=== PATIENT | female | born 1990 | race Caucasian/White ===

== ENCOUNTER 2016-07-06 07:31 | Inpatient (IN) | payer OTHER ==
[2016-07-06] MEDS ORDERED: Dinoprostone* 10 MG VAG.SUPP VAGINAL ONE (08:23)
[2016-07-06] MEDS: Prenatal Vitamin TAB PO SCH (09:44)
[2016-07-06] MEDS ORDERED: Acetaminophen TAB* 325 MG PO PRN (15:48)
[2016-07-06] MEDS ORDERED: Nalbuphine* 20 MG/ML 1 ML VIAL IV PRN (21:10)
[2016-07-06] MEDS ORDERED: Promethazine INJ(RESTRICTED)* 25 MG/ML 1 ML VIAL IV PRN (21:11)
[2016-07-06 22:14] LABS: Hematocrit 33 % (35-47); Hemoglobin 9.7 g/dl (12.0-16.0); Mean Corpuscular HGB Conc 30 g/dl (31-36); Mean Corpuscular Hemoglobin 20 pg (27-31); Mean Platelet Volume 9 um3 (7.4-10.4); Red Cell Distribution Width 17 % (10.5-15); White Blood Count 19.8 10^3/ul (3.5-10.8)
[2016-07-06 22:15] LABS: Comments Flag Yes
[2016-07-06 22:16] LABS: Mean Corpuscular Volume 67 fL (80-97)
[2016-07-07] MEDS ORDERED: Oxytocin in LR* 20 UNITS/1,000 ML BAG IVPB SCH ×2 (01:00→07:00)
[2016-07-07] MEDS ORDERED: Nalbuphine* 20 MG/ML 1 ML VIAL IV ONE (05:08)
[2016-07-07] MEDS ORDERED: Promethazine INJ(RESTRICTED)* 25 MG/ML 1 ML VIAL IV PRN (05:11)
[2016-07-07] MEDS ORDERED: Promethazine INJ(RESTRICTED)* 25 MG/ML 1 ML VIAL ONE (05:12)
[2016-07-07] MEDS ORDERED: Nalbuphine* 20 MG/ML 1 ML VIAL ONE (05:12)
[2016-07-07] MEDS ORDERED: Glycerin ADULT SUPP PR PRN (06:28)
[2016-07-07] MEDS ORDERED: Witch Hazel PAD* JAR TOPICAL PRN (06:28)
[2016-07-07] MEDS ORDERED: Acetaminophen TAB* 325 MG PO PRN (06:28)
[2016-07-07] MEDS ORDERED: Dibucaine 1% 28.35 GM TUBE PR PRN (06:28)
[2016-07-07] MEDS ORDERED: Simethicone TAB* 80 MG TAB.CHEW PO SCH (08:30)
[2016-07-07] MEDS: Docusate CAP* 100 MG PO SCH ×3 (09:50→19:56)
[2016-07-07] MEDS: Ibuprofen TAB* 600 MG PO PRN ×2 (09:50→19:56)
[2016-07-07] MEDS: Prenatal Vitamin TAB PO SCH (09:52)
[2016-07-08] MEDS: Ibuprofen TAB* 600 MG PO PRN (02:49)
[2016-07-08 06:31] LABS: Hematocrit 29 % (35-47); Hemoglobin 8.1 g/dl (12.0-16.0); Mean Corpuscular HGB Conc 29 g/dl (31-36); Mean Corpuscular Hemoglobin 20 pg (27-31); Mean Platelet Volume 9 um3 (7.4-10.4); Red Blood Count 4.07 10^6/ul (4.0-5.4); Red Cell Distribution Width 18 % (10.5-15); White Blood Count 14.1 10^3/ul (3.5-10.8)
[2016-07-08 06:33] LABS: Comments Flag Yes
[2016-07-08 06:34] LABS: Mean Corpuscular Volume 70 fL (80-97)
[2016-07-08] MEDS: Prenatal Vitamin TAB PO SCH (08:08)
[2016-07-08] MEDS: Docusate CAP* 100 MG PO SCH (08:08)
[2016-07-08 08:16] VITALS: BP 125/57
[2016-07-08] MEDS ORDERED: Ferrous Gluconate TAB* 324 MG TAB PO SCH (09:00)
== END 2016-07-08 10:32 | disposition home or self-care (01) | DRG 560 ==
LOC: MCHOBOUT 07:31 → MCHOB 08:11
PROVIDERS: ADMIT Obstetrics & Gynecology; ATTEND Obstetrics & Gynecology
PROC: 10907ZC Drainage of Amniotic Fluid, Therapeutic from Products of Conception, Via Natural or Artificial Opening (ICD-10-PCS; principal; 2016-07-07)
PROC: 10E0XZZ Delivery of Products of Conception, External Approach (ICD-10-PCS; 2016-07-07)
PROC: 4A1H7CZ Monitoring of Products of Conception, Cardiac Rate, Via Natural or Artificial Opening (ICD-10-PCS; 2016-07-07)
PROC: 3E033VJ Introduction of Other Hormone into Peripheral Vein, Percutaneous Approach (ICD-10-PCS; 2016-07-07)
DX: O99.214 Obesity complicating childbirth (principal); Z68.41 Body mass index [BMI] 40.0-44.9, adult; E66.01 Morbid (severe) obesity due to excess calories; O70.1 Second degree perineal laceration during delivery; O90.81 Anemia of the puerperium; D64.9 Anemia, unspecified; Z88.2 Allergy status to sulfonamides; Z3A.39 39 weeks gestation of pregnancy; Z37.0 Single live birth
CPT/HCPCS: 36415; 85025; 86850; 86900; 86901; A9270-GY; J2300; J2550

== ENCOUNTER 2016-07-13 13:03 | Emergency (ER) | payer OTHER ==
[2016-07-13] MEDS: NS 0.9% 1000 ML* 2,000 ML IV ONE ×2 (14:45→15:33)
[2016-07-13 14:53] LABS: Hematocrit 32 % (35-47); Hemoglobin 9.4 g/dl (12.0-16.0); Mean Corpuscular HGB Conc 30 g/dl (31-36); Mean Corpuscular Hemoglobin 20 pg (27-31); Mean Platelet Volume 8 um3 (7.4-10.4); Red Blood Count 4.72 10^6/ul (4.0-5.4); Red Cell Distribution Width 17 % (10.5-15); White Blood Count 16.3 10^3/ul (3.5-10.8)
[2016-07-13 15:05] LABS: Albumin 3.2 g/dL (3.2-5.2); BUN/Creatinine Ratio 21.1 (8-20); C Reactive Protein 50.14 mg/L (< 5.00); EGFR African American 167.6 (>60); EGFR Non-African American 130.3 (>60); Globulin 3.7 g/dL (2-4); Potassium 3.8 mmol/L (3.5-5.0); Total Bilirubin 0.3 mg/dL (0.2-1.0); Total Protein 6.9 g/dL (6.4-8.9)
[2016-07-13 15:11] LABS: Comments Flag Yes; Mean Corpuscular Volume 67 fL (80-97)
--- NOTE | 2016-07-13 17:03 | RAD ---
Indication: 6 days with pelvic pain. Real-time sonography of the pelvis was performed utilizing transabdominal technique. The uterus measures 17.6 x 7.8 x 11.8 cm. Endometrial echo measures 12.2 mm. There is some heterogeneity of the endometrium in the right side of the endometrial cavity which may represent some hemorrhage. A small amount of blood flow is noted within the endometrium. A small amount of retained products is not excluded. Right ovary measures 3.6 x 1.7 x 1.8 cm. Left ovary measures 3.1 x 1.9 x 2.0 cm. IMPRESSION: Irregular heterogeneous endometrium on the right side of the uterus with a trace amount of fluid. I cannot totally exclude a small amount of retained products of conception.
[2016-07-13] MEDS ORDERED: NS 0.9% 1000 ML* 1,000 ML IV ONE (17:37)
[2016-07-13 17:57] LABS: Urine Bacteria Absent (Absent); Urine Bilirubin Negative (Negative); Urine Glucose Negative (Negative); Urine Nitrite Negative (Negative)
[2016-07-13] MEDS ORDERED: metroNIDAZOLE TAB* 250 MG PO ONE ×2 (18:45→18:54)
[2016-07-13] MEDS ORDERED: Amoxicillin/Clavulanate TAB* 875 MG PO ONE ×2 (18:46→18:54)
[2016-07-13] MEDS ORDERED: HYDROcodone/ACETAMIN 5-325 MG* 1 TAB PO ONE ×2 (18:57→18:58)
[2016-07-13] MEDS ORDERED: Ketorolac INJ* 30 MG/ML 1 ML VIAL IV ONE (18:57)
--- NOTE | 2016-07-13 19:19 | ED ---
Alexia Hollis Anna, scribed for Brad Grant MD on 07/13/16 at 1602 . Abdominal Pain/Female - HPI Summary HPI Summary: Patient is a 26 y/o female coming to [facility] presenting with sudden onset of constant, suprapubic abd pain that began at 12:30. The pain began as a cramp and worsened. She describes the severity of the pain as 9/10 at the worst and is currently at 3/10. The pain is alleviated somewhat by lying flat and is exacerbated by movement. The patient is six days . It was a vaginal delivery at 39 weeks, her 2nd baby. There were no complications with delivery she was induced with Cervidil and her labor was21 hours. Her first baby was also delivered vaginally. She is still bleeding lightly, but it has not been worsening and does not have a foul odor. Denies fever, chills, dysuria, change in appetite, or history of abd surgery. Patient is currently bottle feeding. - History of Current Complaint Chief Complaint: EDAbdPain Stated Complaint: LOWER ABD PAIN Time Seen by Provider: 07/13/16 14:06 Hx Obtained From: Patient, Family/Resin Painter - Accompanied by Onset/Duration: Sudden Onset, Lasting Hours, Still Present Timing: Constant Pain Intensity: 3 Pain Scale Used: 0-10 Numeric Location: Suprapubic Allergies/Adverse Reactions: Allergies Allergy/AdvReac Type Severity Reaction Status Date / Time Sulfa Drugs Allergy Intermediate Rash Verified 07/13/16 13:12 PMH/Surg Hx/FS Hx/Imm Hx Previously Healthy: Yes Infectious Disease History: No Infectious Disease History: Denies: Traveled Outside the [place] in Last 30 Days - Family History Known Family History: Negative: Cardiac Disease, Diabetes - Social History Occupation: Employed Full-time Lives: With Family Alcohol Use: None Substance Use Type: Reports: None Smoking Status (MU): Never Smoked Tobacco Review of Systems Positive: Abdominal Pain Positive: other - vaginal bleeding, baseline for her current All Other Systems Reviewed And Are Negative: Yes Physical Exam Triage Information Reviewed: Yes Vital Signs On Initial Exam: Initial Vitals Temp Pulse Resp BP Pulse Ox 99.6 F 93 18 101/68 100 07/13/16 13:09 07/13/16 13:09 07/13/16 13:09 07/13/16 13:09 07/13/16 13:09 Vital Signs Reviewed: Yes Appearance: Positive: Well-Appearing, No Pain Distress Skin: Positive: Warm, Skin Color Reflects Adequate Perfusion, Dry Head/Face: Positive: Normal Head/Face Inspection Eyes: Positive: Normal, EOMI ENT: Positive: Normal ENT inspection Neck: Positive: Supple, Nontender Respiratory/Lung Sounds: Positive: Clear to Auscultation, Breath Sounds Present Cardiovascular: Positive: RRR Abdomen Description: Positive: Other: - Tender lower abd, worse in suprapubic area Bowel Sounds: Positive: Present Musculoskeletal: Positive: Normal, Strength/ROM Intact Neurological: Positive: Normal, Sensory/Motor Intact, Alert, Oriented to Person Place, Time Psychiatric: Positive: Affect/Mood Appropriate - [place] Coma Scale Coma Scale Total: 15 Diagnostics - Vital Signs Vital Signs Temp Pulse Resp BP Pulse Ox 07/13/16 15:00 98 25 98/50 98 07/13/16 14:30 97 24 96/65 97 07/13/16 14:18 21 98/62 07/13/16 13:09 99.6 F 93 18 101/68 100 - Laboratory Lab Results: Lab Results 07/13/16 07/13/16 07/13/16 Range/Units 14:29 14:29 14:29 WBC 16.3 H (3.5-10.8) 10^3/ul RBC 4.72 (4.0-5.4) 10^6/ul Hgb 9.4 L (12.0-16.0) g/dl Hct 32 L (35-47) % MCV 67 L (80-97) fL MCH 20 L (27-31) pg MCHC 30 L (31-36) g/dl RDW 17 H (10.5-15) % Plt Count 281 (150-450) 10^3/ul MPV 8 (7.4-10.4) um3 Neut % (Auto) 81.8 (38-83) % Lymph % (Auto) 11.7 L (25-47) % [place] % (Auto) 3.7 (1-9) % Eos % (Auto) 2.3 (0-6) % Baso % (Auto) 0.5 (0-2) % Absolute Neuts (auto) 13.4 H (1.5-7.7) 10^3/ul Absolute Lymphs (auto) 1.9 (1.0-4.8) 10^3/ul Absolute Monos (auto) 0.6 (0-0.8) 10^3/ul Absolute Eos (auto) 0.4 (0-0.6) 10^3/ul Absolute Basos (auto) 0.1 (0-0.2) 10^3/ul Absolute Nucleated RBC 0.01 10^3/ul Nucleated RBC % 0.1 INR (Anticoag Therapy) 1.00 (0.89-1.11) APTT 29.1 (26.0-36.3) seconds Sodium 139 (133-145) mmol/L Potassium 3.8 (3.5-5.0) mmol/L Chloride 107 (101-111) mmol/L Carbon Dioxide 24 (22-32) mmol/L Anion Gap 8 (2-11) mmol/L BUN 12 (6-24) mg/dL Creatinine 0.57 (0.51-0.95) mg/dL Est GFR ( Amer) 167.6 (>60) Est GFR (Non-Af Amer) 130.3 (>60) BUN/Creatinine Ratio 21.1 H (8-20) Glucose 93 (70-100) mg/dL Lactic Acid (0.5-2.0) mmol/L Calcium 9.0 (8.6-10.3) mg/dL Total Bilirubin 0.30 (0.2-1.0) mg/dL AST 11 L (13-39) U/L ALT 31 (7-52) U/L Alkaline Phosphatase 94 (34-104) U/L C-Reactive Protein 50.14 H (< 5.00) mg/L Total Protein 6.9 (6.4-8.9) g/dL Albumin 3.2 (3.2-5.2) g/dL Globulin 3.7 (2-4) g/dL Albumin/Globulin Ratio 0.9 L (1-3) 07/13/16 Range/Units 14:29 WBC (3.5-10.8) 10^3/ul RBC (4.0-5.4) 10^6/ul Hgb (12.0-16.0) g/dl Hct (35-47) % MCV (80-97) fL MCH (27-31) pg MCHC (31-36) g/dl RDW (10.5-15) % Plt Count (150-450) 10^3/ul MPV (7.4-10.4) um3 Neut % (Auto) (38-83) % Lymph % (Auto) (25-47) % [place] % (Auto) (1-9) % Eos % (Auto) (0-6) % Baso % (Auto) (0-2) % Absolute Neuts (auto) (1.5-7.7) 10^3/ul Absolute Lymphs (auto) (1.0-4.8) 10^3/ul Absolute Monos (auto) (0-0.8) 10^3/ul Absolute Eos (auto) (0-0.6) 10^3/ul Absolute Basos (auto) (0-0.2) 10^3/ul Absolute Nucleated RBC 10^3/ul Nucleated RBC % INR (Anticoag Therapy) (0.89-1.11) APTT (26.0-36.3) seconds Sodium (133-145) mmol/L Potassium (3.5-5.0) mmol/L Chloride (101-111) mmol/L Carbon Dioxide (22-32) mmol/L Anion Gap (2-11) mmol/L BUN (6-24) mg/dL Creatinine (0.51-0.95) mg/dL Est GFR ( Amer) (>60) Est GFR (Non-Af Amer) (>60) BUN/Creatinine Ratio (8-20) Glucose (70-100) mg/dL Lactic Acid 1.2 (0.5-2.0) mmol/L Calcium (8.6-10.3) mg/dL Total Bilirubin (0.2-1.0) mg/dL AST (13-39) U/L ALT (7-52) U/L Alkaline Phosphatase (34-104) U/L C-Reactive Protein (< 5.00) mg/L Total Protein (6.4-8.9) g/dL Albumin (3.2-5.2) g/dL Globulin (2-4) g/dL Albumin/Globulin Ratio (1-3) Result Diagrams: 07/13/16 14:29 07/13/16 14:29 Lab Statement: Any lab studies that have been ordered have been reviewed, and results considered in the medical decision making process. - Ultrasound No standard instances Ultrasound Interpretation: Positive (See Comments) Ultrasound Interpretation Completed By: Radiologist - PELVIS US IMPRESSION: Irregular heterogeneous endometrium on the right side of the uterus with a trace amount of fluid. I cannot totally exclude a small amount of retained products of conception. Abdominal Pain Fem Course/Dx - Course Course Of Treatment: DISCUSSED WITH [facility]. DISCUSSED RESULTS WITH PATIENT/. WILL TREAT FOR ENDOMETRITIS WITH FLAGYL 500MG PO TID AND AUGMENTIN 875MG PO BID FOR 14 DAYS. OBGYN F/U WITHIN 48 HOURS. RETURN TO ED IF WORSE. DISCHARGE HOME STABLE. - Diagnoses Provider Diagnoses: endometritis, pain, UTI (urinary tract infection) - Provider Notifications Discussed Care Of Patient With: Dr. Hyman (OBGYN) at 18:36. She recommended antibiotics, a straight catheter for urine, and a follow up with OB within 48 hours. Patient should return with worsening symptoms. Discharge - Discharge Plan Condition: Stable Disposition: HOME Prescriptions: Amoxicillin/Clavulanate TAB* [Augmentin TAB 875*] 875 mg PO BID #26 tab HYDROcodone/ACETAMIN 5-325 MG* [Stewart 5-325 TAB*] 1 tab PO Q6H PRN #10 tab MDD 4 PRN Reason: Pain Metronidazole [Flagyl 500 MG TAB] 500 mg PO TID #40 tab Patient Education Materials: Urinary Tract Infection in Women (ED), Endometritis (ED), Pelvic Pain (ED) Referrals: [facility] [Provider Group] Berna Lopez NP [Primary Care Provider] - Matilda Hyman MD [Medical Doctor] - Additional Instructions: FOLLOW UP WITH [facility] WITHIN 48 HOURS. CALL FOR FOLLOW UP TOMORROW. RETURN TO THE EMERGENCY DEPARTMENT FOR ANY WORSENING OF YOUR CONDITION; PAIN, FEVER, YOU FEEL ILL OR QUESTIONS OR CONCERNS. The documentation as recorded by the Alexia casarez Anna accurately reflects the service I personally performed and the decisions made by me, Brad Grant MD.
[2016-07-13 19:21] LABS: Urine Bacteria Absent (Absent); Urine Bilirubin Negative (Negative); Urine Glucose Negative (Negative); Urine Nitrite Negative (Negative)
[2016-07-13 19:34] VITALS: BP 122/78
== END 2016-07-13 19:33 | disposition home or self-care (01) ==
LOC: ED 13:03
DX: O86.12 Endometritis following delivery (principal); R10.30 Lower abdominal pain, unspecified; N71.9 Inflammatory disease of uterus, unspecified; N39.0 Urinary tract infection, site not specified; O90.89 Other complications of the puerperium, not elsewhere classified
CPT/HCPCS: 36415; 76856; 80053; 81003; 81015; 83605; 85025; 85610; 85730; 86140; 87040; 87086; 96360; 99284; A9270-GY; J1885